=== PATIENT | female | born 1995 ===

== ENCOUNTER 2022-07-08 05:30 | Day surgery (SDC) | payer OTHER ==
[~2022-07-08] VITALS: Ht 162.6 cm; Wt 68.0 kg
[2022-07-08] MEDS ORDERED: PERCOCET 5-3251 EACH PO (08:21)
== END 2022-07-08 15:00 | disposition home or self-care (01) ==
LOC: CIR.AMB 05:30
PROVIDERS: ATTEND Surgery
DX: K62.89 Other specified diseases of anus and rectum (principal); K60.3 Anal fistula; K60.1 Chronic anal fissure; Z88.2 Allergy status to sulfonamides; K62.5 Hemorrhage of anus and rectum; F12.90 Cannabis use, unspecified, uncomplicated; Z20.822 Contact with and (suspected) exposure to COVID-19